=== PATIENT | female | born 1955 | race Caucasian/White ===

== ENCOUNTER 2020-06-02 19:07 | Emergency (ER) | payer OTHER ==
[~2020-06-02] VITALS: Ht 162.6 cm; Wt 80.3 kg
[2020-06-02 19:18] VITALS: Ht 162.6 cm; Wt 80.3 kg
[2020-06-02] MEDS ORDERED: IBU600 M2 PO (20:22)
[2020-06-02] MEDS ORDERED: ACETAMINOPHEN500 M5 PO (20:22)
[2020-06-02 21:05] VITALS: BP 132/83
== END 2020-06-02 21:05 | disposition home or self-care (01) ==
LOC: ED 19:07
DX: S12.9XXA Fracture of neck, unspecified, initial encounter (principal); W18.30XA Fall on same level, unspecified, initial encounter; Y93.89 Activity, other specified; Y92.89 Other specified places as the place of occurrence of the external cause; Y99.8 Other external cause status
CPT/HCPCS: J1885